=== PATIENT | male | born 1940 | race Caucasian/White ===

== ENCOUNTER → 2020-07-11 02:28 | Outpatient (CLI) | payer MEDICARE, OTHER, SELFPAY ==
[2020-07-11 21:58] LABS: SARS-CoV-2 RNA PCR Negative
== END ==
PROVIDERS: Visit Provider Specialist
DX: Z01.812 Encounter for preprocedural laboratory examination (principal); Z20.822 Contact with and (suspected) exposure to COVID-19
CPT/HCPCS: C9803; U0003; U0005

== ENCOUNTER 2020-07-14 01:07 | Day surgery (SDC) | payer MEDICARE, OTHER, SELFPAY ==
[2020-07-11 10:16] VITALS: BMI 22.4
[2020-07-11 14:22] VITALS: BMI 20.4
[2020-07-14] VITALS (8 sets, daily range): BP systolic 126–146; BP diastolic 60–68; PULSE 72–74; RESP 16–24; TEMP 36.2–36.6; O2SAT 90–100
[2020-07-14 09:15] LABS: Basophils Percent Auto 0.6 % (0.2-1.2); Eosinophils Absolute Auto 0.2 K/mm3 (0-0.3); Eosinophils Percent Auto 2.8 % (0-4.4); Hematocrit 37.5 % (42.0-52.0); Hemoglobin 12.4 g/dL (14.0-18.0); Immature Granulocyte Absolute 0.01 K/mm3 (0.00-0.031); Immature Granulocyte Percent A 0.2 % (0-0.5); Lymphocytes Absolute Auto 1.24 K/mm3 (0.9-3.2); Lymphocytes Percent Auto 23.4 % (18.3-44.2); Mean Corpuscular HGB Conc 33.1 g/dl (32-36); Mean Corpuscular Volume 93.8 fl (80-100); Monocytes Absolute Auto 0.4 K/mm3 (0.1-0.6); Monocytes Percent Auto 8.3 % (2.6-8.5); Neutrophils Absolute Auto 3.4 K/mm3 (1.3-6.7); Neutrophils Percent Auto 64.7 % (45.5-73.1); Platelet Count Result 174 k/mm3 (150-375); Red Cell Distribution Width 14.4 % (11.5-14.5); White Blood Count 5.3 K/mm3 (4.5-10.0)
[2020-07-14 09:28] LABS: Anion Gap 4 mmol/L (8-16); Blood Urea Nitrogen 53 mg/dL (9-20); Calcium 8.5 mg/dL (8.4-10.2); Carbon Dioxide 25 mmol/L (22-30); Chloride 112 mmol/L (98-107); Estimated CRCL calculation 20 ml/min; Estimated Glomerular Filt Rate 25; Glucose 124 mg/dL (75-110); Potassium 5.4 mmol/L (3.4-5.0); Prothrombin Time 14.1 Seconds (11.1-14.7); Sodium 141 mmol/L (137-145)
--- NOTE | 2020-07-14 10:05 | WPDMODSED ---
Moderate Sedation Note-Pt Data Patient Data Diagnosis: coronary artery disease with previous bypass grafting permanently implanted pacemaker at [facility]. dual-chamber device in place in a patient in chronic AFib Present Complaint: no complaints Procedure to be performed/Plan: permanent pacemaker generator change Allergies Allergy/AdvReac Type Severity Reaction Status Date / Time lisinopril Allergy Rash Verified 07/11/20 14:34 Home Medications Medication Instructions Recorded Confirmed Type albuterol sulfate [ProAir HFA] 90 mcg INHALATION Q4-6H PRN 07/11/20 07/11/20 History apixaban [Eliquis] 2.5 mg BID 07/11/20 07/11/20 History aspirin 81 mg PO DAILY 07/11/20 07/11/20 History atorvastatin 20 mg DAILY 07/11/20 07/11/20 History carvedilol 6.25 mg BID 07/11/20 07/11/20 History citalopram 10 mg DAILY 07/11/20 07/11/20 History insulin aspart U-100 [Novolog 4 unit SUBCUT QPM 07/11/20 07/11/20 History PenFill U-100 Insulin] insulin glargine [Lantus Solostar 24 unit SUBCUT QPM 07/11/20 07/11/20 History U-100 Insulin] ramipril 2.5 mg DAILY 07/11/20 07/11/20 History ranitidine HCl 150 mg BID 07/11/20 07/11/20 History torsemide 10 mg DAILY 07/11/20 07/11/20 History Current Medications: Active Medications Sodium Chloride (Normal Saline Iv) 500 mls @ 100 mls/hr IV CONT .Q5H CHEPE Sedation/Anesthesia: No previous sedation/anesthesia problems (including family history). Mod Sed Physical Exam Physical Exam Pre Procedural Exam: Normal: Neck, Throat, Airway, Lungs, Heart Size, Heart Rate, Heart Rhythm, Neuro Exam and Extremities and Variation: Appearance ( elderly white male no apparent distress) Hours since solid foods: 12 Hours since liquid intake: 12 Internal Medicine - PN: Obj Da Vital Signs Vital Signs: Vital Signs - 24 hr 07/14/20 09:03 Temperature 36.6 C Pulse Rate 72 Respiratory Rate 20 Blood Pressure 146/62 H Pulse Oximetry 97 Meds/Results Medications: Active Medications Generic Name Dose Route Start Last Admin Trade Name Freq PRN Reason Stop Dose Admin Sodium Chloride 500 mls @ 100 mls/hr 07/14/20 08:30 Normal Saline Iv IV CONT .Q5H CHEPE Labs CBC & Chem 7: 07/14/20 09:07 07/14/20 09:07 Labs: Laboratory Results - last 24 hr 07/14/20 07/14/20 07/14/20 09:07 09:07 09:07 WBC 5.3 RBC 4.00 L Hgb 12.4 L Hct 37.5 L MCV 93.8 MCH 31.0 MCHC 33.1 RDW 14.4 Plt Count 174 MPV 9.0 Immature Gran % (Auto) 0.2 Neut % (Auto) 64.7 Lymph % (Auto) 23.4 [place] % (Auto) 8.3 Eos % (Auto) 2.8 Baso % (Auto) 0.6 Lymph # (Auto) 1.24 [place] # (Auto) 0.4 Eos # (Auto) 0.2 Baso # (Auto) 0.0 Abs Immat Gran (auto) 0.01 Absolute Neuts (auto) 3.4 Absolute Nucleated RBC 0.0 Nucleated RBC % 0.0 PT 14.1 INR 1.0 Sodium 141 Potassium 5.4 H Chloride 112 H Carbon Dioxide 25 Anion Gap 4 L BUN 53 H Creatinine 2.50 H Estim Creat Clear Calc 20 Estimated GFR 25 L Glucose 124 H Calcium 8.5 ASA Classification/Sedation ASA Classification/Sedation ASA Class: II Emergent: No Risks: Risks, benefits and alternatives explained and patient/family accepted plan for sedation. Patient re-evaluated immediately prior to sedation.
--- NOTE | 2020-07-14 11:17 | ECG_ITS ---
Measurements Intervals [place] Rate: 76 P: [place]: 0 QRS: -69 QRSD: 199 T: 112 QT: 474 QTc: 534 Interpretive Statements ELECTRONIC VENTRICULAR PACEMAKER NO FURTHER INTERPRETATION IS POSSIBLE ATYPICAL ECG Electronically Signed On 07-14-2020 12:12:34 COMMERCIAL ANALYST by Elliott Malin D.O.
--- NOTE | 2020-07-14 11:18 | WPDCARDPROC ---
Cardiac Cath Procedure Note Date of procedure:: 07/14/20 Performing physician:: Marino Manrique MD Indication:: chronically implanted pacemaker at [facility] Brief clinical history:: this is an 80-year-old man with coronary disease as well as AV node dysfunction. He underwent bypass grafting in the remote past and implantation of a permanent dual-chamber pacemaker in 2012. The currently implanted device is now at [facility]. Between the implant and this procedure the patient has lapsed into chronic atrial fibrillation. According to the records there are no plans at restoring sinus rhythm. Procedure Procedure performed:: Explantation of depleted pacemaker pulse generator implantation of new pacemaker pulse generator capping and abandoning atrial lead Sedation/Medication given:: fentanyl 50 mg Versed 2 mg case start time 10:39 a.m. case end time 11:13 a.m. sedation provided by Rosi Vazquez RN, trained observer Access site:: chronically implanted left subclavian pacemaker pocket Procedure note:: patient was brought to the cardiac catheterization lab in the postabsorptive state. Pacemaker pocket in the left subclavian fossa was prepped and draped in the usual sterile fashion. Patient received sedation as described above. He then received lidocaine injected locally above the pocket just below the previous incision. Plasma blade was used to make the incision and to dissect the subcutaneous fat. The fibrous pocket was then encountered on the plasma blade was used to incise an open this. Electrocautery was used to provide cutaneous hemostasis. The depleted pacemaker in the attached leads were then removed from the pocket and were visually unremarkable in appearance. The ventricular lead was then disconnected from the pacemaker lead and connected to the new single-chamber pacemaker device. The atrial lead was then disconnected from the depleted generator and a cap was used to abandon the lead was secured in place with 2 0 silk ties. The pocket was then irrigated with antibiotic infused saline. In the medial aspect of the pocket there was a small artery that was encountered and bleeding at the end of the case. This was then clamped with a micro clamp and cauterized using the plasma blade. Upon withdrawal of the clamp after several minutes good hemostasis was visualized. The new generator was then placed into the previously existing pocket and the pocket was then closed in layers using 3 0 Vicryl in an interrupted fashion for the subcutaneous tissue on 4 0 Vicryl in a running subcuticular fashion for the skin. The wound was dressed with an Aquacel dressing patient's left arm was placed in a sling and he was taken to the holding area for post pacemaker generator change recovery. Procedure was uneventful and well tolerated Findings:: the explanted device is a [employer] DR RF [id number] dual-chamber pacemaker originally implanted July 24, 2012. The abandoned atrial lead is a [employer] 1999/ 46 cm bipolar lead also originally implanted July 24, 2012 the chronic ventricular lead is a [employer] STS 2088 TC /52 cm bipolar lead originally implanted July 24, 2012. The ventricular threshold is 1.0 volts at 0.4 milliseconds R waves are sensed at 9 mV and pacing impedance is 430 Ohms. The new pacemaker is a [employer] MRI 1272 single-chamber VVI pacemaker programmed at VVIR 70 beats per minute. Conclusion:: Successful explantation of depleted dual-chamber pacemaker pulse generator successful implantation new single-chamber pacemaker pulse generator as detailed above capping and abandoning the atrial lead in this elderly gentleman was developed chronic atrial fibrillation Marino Manrique MD [facility]
--- NOTE | 2020-07-14 11:26 | PM.IMHP ---
H&P: HPI History of Present Illness Date/Time: 07/14/20 11:26 Chief Complaint: elective admission for pacemaker generator change Narrative: Bryce Leahy Jr. is a 80 year old male admitted today as an outpatient for pacemaker generator change. This is a patient who under received a dual-chamber pacemaker in July of 2012 because of symptomatic high-grade AV block with a left bundle branch block. He has had normal pacemaker service and the device is now noted to be at [facility]. The patient this in between that procedure and today has lapsed into chronic atrial fibrillation and has been anticoagulated with apixaban. He also has a history of coronary artery disease and underwent three-vessel bypass grafting in June of 2012. Because of the pacemaker at [facility] a new [facility] generator change has been recommended for today. The patient is asymptomatic today on presentation. Because of chronic atrial fibrillation I indicated the plan should be to perform a generator change with a single-chamber pulse generator, capping and abandoning the atrial lead. Review of Systems Constitutional: Constitutional: Reports no additional constitutional complaints Eyes: Eyes: Reports no additional eye complaints ENT: Reports system reviewed and no additional complaints, except as documented Cardiovascular: Cardiovascular: Reports no additional cardiovascular complaints Respiratory: Respiratory: Reports dyspnea Gastrointestinal: Gastrointestinal: Reports no additional gastrointestinal complaints Musculoskeletal: Musculoskeletal: Reports myalgias and Reports arthralgias Integumentary/Breasts: Skin/Breast: Reports system reviewed and no additional complaints, except as docu Neurologic: Reports system reviewed and no additional complaints, except as documented Meds Home Medications and Allergies Home Medications Medication Instructions Recorded Confirmed Type albuterol sulfate [ProAir HFA] 90 mcg INHALATION Q4-6H PRN 07/11/20 07/11/20 History apixaban [Eliquis] 2.5 mg BID 07/11/20 07/11/20 History aspirin 81 mg PO DAILY 07/11/20 07/11/20 History atorvastatin 20 mg DAILY 07/11/20 07/11/20 History carvedilol 6.25 mg BID 07/11/20 07/11/20 History citalopram 10 mg DAILY 07/11/20 07/11/20 History insulin aspart U-100 [Novolog 4 unit SUBCUT QPM 07/11/20 07/11/20 History PenFill U-100 Insulin] insulin glargine [Lantus Solostar 24 unit SUBCUT QPM 07/11/20 07/11/20 History U-100 Insulin] ramipril 2.5 mg DAILY 07/11/20 07/11/20 History ranitidine HCl 150 mg BID 07/11/20 07/11/20 History torsemide 10 mg DAILY 07/11/20 07/11/20 History Allergies Allergy/AdvReac Type Severity Reaction Status Date / Time lisinopril Allergy Rash Verified 07/11/20 14:34 Vital Signs Vital Signs - 24 hr 07/14/20 09:03 Temperature 36.6 C Pulse Rate 72 Respiratory Rate 20 Blood Pressure 146/62 H Pulse Oximetry 97 Exam Const: General: comfortable and no acute distress Other: Frail elderly looking man in no distress HENMT: Mouth: Yes moist mucous membranes Eyes: Sclera: sclerae normal Pupils: Equal, round and reactive pupils present Neck: Neck: supple and no JVD Resp: Effort & Inspection: normal respiratory effort Auscultation: clear to auscultation bilaterally Cardio: Rate: regular rate Rhythm: regular rhythm Other: paced rhythm, no murmur no gallop no rub GI: GI Palp: Yes Soft to palpation Auscultation: normal bowel sounds Skin: General skin exam: normal color Neuro: Cognition (Neuro): normal cognition Extrem: General: normal to inspection H&P: Results Labs Labs: Short CBC 07/14/20 Range/Units 09:07 WBC 5.3 (4.5-10.0) K/mm3 Hgb 12.4 L (14.0-18.0) g/dL Hct 37.5 L (42.0-52.0) % Plt Count 174 (150-375) k/mm3 [facility] 07/14/20 09:07 Sodium 141 Potassium 5.4 H Chloride 112 H Carbon Dioxide 25 BUN 53 H Creatinine 2.50 H Glucose 124 H Calcium 8.5 Assessment and Plan Additional Plan 80-
--- NOTE | 2020-07-14 14:00 | SUR.PHASEII ---
Discharge instructions reviewed with both patient and daughter, Henna. Emphasis placed on holding eliquis, keflex prescription, wound/site care, follow-up appointment, and sling use/activity restrictions. Patient and daughter verbalize understanding. PIV removed. VSS at discharge. Patient escorted to vehicle via wheelchair by staff, where he was picked up by his daughter Henna.
== END 2020-07-14 14:00 | disposition home or self-care (01) ==
PROVIDERS: Visit Provider Specialist
DX: Z45.010 Encounter for checking and testing of cardiac pacemaker pulse generator [battery] (principal); I48.20 Chronic atrial fibrillation, unspecified; I25.10 Atherosclerotic heart disease of native coronary artery without angina pectoris; I45.89 Other specified conduction disorders; Z79.82 Long term (current) use of aspirin; Z79.4 Long term (current) use of insulin; Z95.1 Presence of aortocoronary bypass graft; Z79.01 Long term (current) use of anticoagulants
CPT/HCPCS: 33227; 36415; 80048; 85025; 85610; A4565; C1786; J0690; J2250; J3010; J7040